=== PATIENT | female | born 1970 | race Caucasian/White ===

== ENCOUNTER 2021-10-23 13:25 | Outpatient (CLI) | payer BC | END 2021-10-23 13:26 | disposition home or self-care (01) | LOC: SCSRAD 13:25 | PROVIDERS: ATTEND Family Medicine Sports Medicine | DX: M79.674 Pain in right toe(s) (principal); S92.511A Displaced fracture of proximal phalanx of right lesser toe(s), initial encounter for closed fracture ==

== ENCOUNTER 2021-10-29 11:51 | Outpatient (CLI) | payer BC | END 2021-10-29 11:52 | disposition home or self-care (01) | LOC: BICMAMMO 11:51 | PROVIDERS: ATTEND Family Medicine Sports Medicine | DX: Z12.31 Encounter for screening mammogram for malignant neoplasm of breast (principal); Z91.89 Other specified personal risk factors, not elsewhere classified; Z98.890 Other specified postprocedural states | CPT/HCPCS: 77063; 77067 ==

== ENCOUNTER 2021-11-06 13:21 | Outpatient (CLI) | payer BC | END 2021-11-06 13:22 | disposition home or self-care (01) | LOC: BICMAMMO 13:21 | PROVIDERS: ATTEND Family Medicine Sports Medicine | DX: N64.89 Other specified disorders of breast (principal) | CPT/HCPCS: G0279 ==

== ENCOUNTER 2023-01-17 08:48 | Outpatient (CLI) | payer BC | END 2023-01-17 08:49 | disposition home or self-care (01) | LOC: BICMAMMO 08:48 | PROVIDERS: ATTEND Family Medicine Sports Medicine | DX: Z12.31 Encounter for screening mammogram for malignant neoplasm of breast (principal); Z91.89 Other specified personal risk factors, not elsewhere classified; Z98.890 Other specified postprocedural states | CPT/HCPCS: 77063; 77067 ==

== ENCOUNTER 2024-10-29 13:24 | Outpatient (CLI) | payer BC | END 2024-10-29 13:25 | disposition home or self-care (01) | LOC: CT 13:24 | PROVIDERS: ATTEND Physician Assistant | DX: N20.0 Calculus of kidney (principal); N28.89 Other specified disorders of kidney and ureter; N13.30 Unspecified hydronephrosis | CPT/HCPCS: 74176 ==

== ENCOUNTER 2024-12-01 09:45 | Day surgery (SDC) | payer BC ==
[2024-11-26 14:39] VITALS: BMI 27.9
[2024-12-01] MEDS ORDERED: Ondansetron PF 4 MG/2 ML Vial ONE (12:50)
[2024-12-01] MEDS ORDERED: PROPOFOL 20 ML ONE (12:50)
[2024-12-01] MEDS ORDERED: Albuterol HFA (OR) 200 PUFF INH ONE (14:31)
[2024-12-01] MEDS ORDERED: PHENYLEPHRINE-NS 100 MCG/ML 10 ML SYRINGE ONE (14:34)
[2024-12-01] MEDS ORDERED: Oxybutynin 5 MG TAB ONE (15:32)
== END 2024-12-01 17:29 | disposition home or self-care (01) ==
LOC: SDC 09:45
PROVIDERS: ATTEND Urology
PROC: 0WHR8YZ Insertion of Other Device into Genitourinary Tract, Via Natural or Artificial Opening Endoscopic (ICD-10-PCS; principal; 2024-12-01)
DX: N13.2 Hydronephrosis with renal and ureteral calculous obstruction (principal); N39.0 Urinary tract infection, site not specified; B96.20 Unspecified Escherichia coli [E. coli] as the cause of diseases classified elsewhere; I10 Essential (primary) hypertension; E11.65 Type 2 diabetes mellitus with hyperglycemia; Z79.4 Long term (current) use of insulin
CPT/HCPCS: 74018; 74420; C1769; C2617; J1100; J2250; J2543; J2704; J3010

== ENCOUNTER 2024-12-10 14:41 | Emergency (ER) | payer BC ==
[2024-12-10 16:16] LABS: #Basophils 0.07 10x3/uL (0.0-0.2); #Eosinophils 0.75 10x3/uL (0.0-0.7); #Monocytes 0.73 10x3/uL (0.11-0.59); #Neutrophils 5.64 10x3/uL (1.40-6.50); %Basophils 0.7 % (0.0-1.0); %Eosinophils 7.9 % (0.0-10.0); %Lymphocytes 24.1 % (21.0-51.0); %Monocytes 7.7 % (0.0-10.0); %Neutrophils 59.4 % (42.0-75.0); Hematocrit 35.5 % (36.0-47.0); Hemoglobin 11.8 g/dL (12.0-16.0); Mean Corpuscular Hemoglobin 28.6 pg (27.0-31.0); Mean Corpuscular Volume 86.0 fL (78.0-98.0); Platelet Count 368 10x3/uL (130-400); Red Blood Cell (RBC) Count 4.13 mill/uL (4.20-5.40); White Blood Cell (WBC) Count 9.50 10x3/uL (4.8-10.8)
[2024-12-10 16:38] LABS: ALT (SGPT) 19 U/L (Less than 34); AST (SGOT) 24 U/L (11-34); Albumin 3.6 g/dL (3.1-4.5); Alkaline Phosphatase 93 U/L (40-110); Anion Gap 14 mmol/L (10-20); BUN (Urea Nitrogen) 11 mg/dL (9.8-20.1); Bilirubin, Total 0.1 mg/dL (0.3-1.2); Calc. Creatinine Clearance 0 mL/min (70-130); Calcium 9.0 mg/dL (7.8-10.44); Carbon Dioxide 24 mmol/L (22-29); Chloride 102 mmol/L (98-107); Globulin 2.6 g/dL (2.4-3.5); Glucose 85 mg/dL (70-105); Potassium 4.0 mmol/L (3.5-5.1); Sodium 136 mmol/L (136-145)
== END 2024-12-10 17:00 | disposition home or self-care (01) ==
LOC: ERS 14:41
DX: Z00.01 Encounter for general adult medical examination with abnormal findings (principal); I10 Essential (primary) hypertension; D64.9 Anemia, unspecified; R79.9 Abnormal finding of blood chemistry, unspecified
CPT/HCPCS: 93005; 99283

== ENCOUNTER 2024-12-20 06:22 | Day surgery (SDC) | payer BC ==
[2024-12-10 13:24] VITALS: BMI 27.9
[2024-12-10 14:02] LABS: #Basophils 0.06 10x3/uL (0.0-0.2); #Eosinophils 0.70 10x3/uL (0.0-0.7); #Monocytes 0.83 10x3/uL (0.11-0.59); #Neutrophils 6.44 10x3/uL (1.40-6.50); %Basophils 0.6 % (0.0-1.0); %Eosinophils 7.1 % (0.0-10.0); %Lymphocytes 18.4 % (21.0-51.0); %Monocytes 8.4 % (0.0-10.0); %Neutrophils 65.2 % (42.0-75.0); Hematocrit 37.7 % (36.0-47.0); Hemoglobin 12.3 g/dL (12.0-16.0); Mean Corpuscular Hemoglobin 28.8 pg (27.0-31.0); Mean Corpuscular Volume 88.3 fL (78.0-98.0); Platelet Count 407 10x3/uL (130-400); Red Blood Cell (RBC) Count 4.27 mill/uL (4.20-5.40); White Blood Cell (WBC) Count 9.88 10x3/uL (4.8-10.8)
[2024-12-10 14:17] LABS: INR-International Normal Ratio 1.0; Prothrombin Time 12.8 sec (12.0-14.7)
[2024-12-10 14:18] LABS: BHCG - Serum Negative (NEGATIVE); PTT 30.5 sec (22.9-36.1); Pregs Control Background? CLEAR/WHITE (CLR/WHITE); Pregs Control Bar Appear? YES (CONTROL BAR)
[2024-12-10 14:23] LABS: Anion Gap 6 mmol/L (10-20); BUN (Urea Nitrogen) 11 mg/dL (9.8-20.1); Calc. Creatinine Clearance 0 mL/min (70-130); Calcium 9.0 mg/dL (7.8-10.44); Carbon Dioxide 28 mmol/L (22-29); Chloride 89 mmol/L (98-107); Glucose 153 mg/dL (70-105); Potassium 3.3 mmol/L (3.5-5.1); Sodium 120 mmol/L (136-145)
[2024-12-10 14:24] LABS: Bacteria/HPF 2+ HPF (None Seen); Glucose, Urine (Dipstick) Normal (Negative); Leukocyte 500 Leu/uL (Negative); Protein, Urine (Dipstick) 70 mg/dL (Neg-Trace); Specific Gravity, Urine 1.017 (1.002-1.036); WBC/HPF 21-50 HPF (0-3)
[2024-12-20] MEDS ORDERED: cefTRIAXone (ROCEPHIN) 2 GM VIAL ONE (06:36)
[2024-12-20] MEDS ORDERED: Rocuronium Bromide 10 MG/ML (10ML VIAL) ONE (07:05)
[2024-12-20] MEDS ORDERED: Bupivacaine 0.25% HCL 30 ML VIAL ONE (07:35)
[2024-12-20] MEDS ORDERED: PROPOFOL 200 MG/20 ML VIAL ONE (07:58)
[2024-12-20] MEDS ORDERED: PHENYLEPHRINE-NS 100 MCG/ML 10 ML SYRINGE ONE (08:06)
[2024-12-20] MEDS ORDERED: Ondansetron PF 4 MG/2 ML Vial ONE (08:09)
[2024-12-20] MEDS ORDERED: SUGAMMADEX SODIUM 200 MG/2 ML VIAL ONE (08:16)
[2024-12-20] MEDS ORDERED: Iopamidol 60 ML ONE (08:41)
[2024-12-20] MEDS ORDERED: Oxybutynin 5 MG TAB ONE (10:31)
[2024-12-20] MEDS ORDERED: fentaNYL PF 100 MCG/2 ML SYRINGE ONE (10:56)
[2024-12-20 11:47] LABS: Hematocrit 37.0 % (36.0-47.0); Hemoglobin 11.7 g/dL (12.0-16.0); Mean Corpuscular Hemoglobin 28.5 pg (27.0-31.0); Mean Corpuscular Volume 90.0 fL (78.0-98.0); Platelet Count 295 10x3/uL (130-400); Red Blood Cell (RBC) Count 4.11 mill/uL (4.20-5.40); White Blood Cell (WBC) Count 9.67 10x3/uL (4.8-10.8)
[2024-12-20 12:21] LABS: Anion Gap 12 mmol/L (10-20); BUN (Urea Nitrogen) 9 mg/dL (9.8-20.1); Calc. Creatinine Clearance 127 mL/min (70-130); Calcium 8.6 mg/dL (7.8-10.44); Carbon Dioxide 22 mmol/L (22-29); Chloride 106 mmol/L (98-107); Glucose 119 mg/dL (70-105); Potassium 4.2 mmol/L (3.5-5.1); Sodium 136 mmol/L (136-145)
== END 2024-12-20 14:00 | disposition home or self-care (01) ==
LOC: SDC 06:22
PROVIDERS: ATTEND Urology
PROC: 0TC33ZZ Extirpation of Matter from Right Kidney Pelvis, Percutaneous Approach (ICD-10-PCS; principal; 2024-12-20)
DX: N20.0 Calculus of kidney (principal); N30.00 Acute cystitis without hematuria; E11.9 Type 2 diabetes mellitus without complications; I10 Essential (primary) hypertension; Z79.899 Other long term (current) drug therapy
CPT/HCPCS: 36415; 74018; 74420; 80048; 81001; 84703; 85025; 85027; 85610; 85730; 86850; 86900; 86901; 87086; A4314; A6258; C1726; C1758; C1769; J0169; J0665; J0696; J1100; J2250; J2405; J2704; J3010; Q9967

== ENCOUNTER 2024-12-28 13:30 | Outpatient (CLI) | payer BC | END 2024-12-28 13:31 | disposition home or self-care (01) | LOC: BICCT 13:30 | PROVIDERS: ATTEND Urology | DX: N20.0 Calculus of kidney (principal); Z96.0 Presence of urogenital implants | CPT/HCPCS: 74176 ==

== ENCOUNTER 2024-12-30 14:01 | Outpatient (CLI) | payer BC ==
[2024-12-30 14:45] LABS: #Basophils 0.05 10x3/uL (0.0-0.2); #Eosinophils 0.43 10x3/uL (0.0-0.7); #Monocytes 0.74 10x3/uL (0.11-0.59); #Neutrophils 5.27 10x3/uL (1.40-6.50); %Basophils 0.6 % (0.0-1.0); %Eosinophils 5.0 % (0.0-10.0); %Lymphocytes 23.4 % (21.0-51.0); %Monocytes 8.7 % (0.0-10.0); %Neutrophils 61.8 % (42.0-75.0); Hematocrit 35.2 % (36.0-47.0); Hemoglobin 11.4 g/dL (12.0-16.0); Mean Corpuscular Hemoglobin 28.6 pg (27.0-31.0); Mean Corpuscular Volume 88.2 fL (78.0-98.0); Platelet Count 372 10x3/uL (130-400); Red Blood Cell (RBC) Count 3.99 mill/uL (4.20-5.40); White Blood Cell (WBC) Count 8.53 10x3/uL (4.8-10.8)
[2024-12-30 15:11] LABS: INR-International Normal Ratio 1.0; PTT 32.5 sec (22.9-36.1); Prothrombin Time 13.4 sec (12.0-14.7)
[2024-12-30 15:17] LABS: Anion Gap 12 mmol/L (10-20); BUN (Urea Nitrogen) 10 mg/dL (9.8-20.1); Calc. Creatinine Clearance 0 mL/min (70-130); Calcium 9.0 mg/dL (7.8-10.44); Carbon Dioxide 27 mmol/L (22-29); Chloride 101 mmol/L (98-107); Glucose 157 mg/dL (70-105); Potassium 3.5 mmol/L (3.5-5.1); Sodium 136 mmol/L (136-145)
== END 2024-12-30 14:02 | disposition home or self-care (01) ==
LOC: LABBT 14:01
PROVIDERS: ATTEND Urology
DX: Z01.818 Encounter for other preprocedural examination (principal); N20.0 Calculus of kidney
CPT/HCPCS: 80048; 85025; 85610; 85730; 93005; 93010

== ENCOUNTER 2025-01-03 07:37 | Day surgery (SDC) | payer BC ==
[2024-12-30 14:14] VITALS: BMI 27.9
[2025-01-03] MEDS ORDERED: cefTRIAXone (ROCEPHIN) 2 GM VIAL ONE (09:01)
[2025-01-03] MEDS ORDERED: Famotidine/PF 20 mg/2ml Vial ONE (09:05)
[2025-01-03] MEDS ORDERED: Rocuronium Bromide 10 MG/ML (10ML VIAL) ONE (10:36)
[2025-01-03] MEDS ORDERED: PROPOFOL 200 MG/20 ML VIAL ONE (10:44)
[2025-01-03] MEDS ORDERED: Ondansetron PF 4 MG/2 ML Vial ONE (10:49)
[2025-01-03] MEDS ORDERED: SUGAMMADEX SODIUM 200 MG/2 ML VIAL ONE (10:53)
[2025-01-03] MEDS ORDERED: Oxybutynin 5 MG TAB ONE (12:00)
[2025-01-03] MEDS ORDERED: HYDROcodone/Acetaminophen 5/325 mg Tablet ONE (13:46)
== END 2025-01-03 14:26 | disposition home or self-care (01) ==
LOC: SDC 07:37
PROVIDERS: ATTEND Urology
DX: N20.0 Calculus of kidney (principal); I10 Essential (primary) hypertension; F90.9 Attention-deficit hyperactivity disorder, unspecified type; E11.9 Type 2 diabetes mellitus without complications; Z79.84 Long term (current) use of oral hypoglycemic drugs; Z79.899 Other long term (current) drug therapy
CPT/HCPCS: 74420; 82365; 88300; C1747; C1769; C2617; J0696; J1100; J1308; J2405; J2704; J3010; Q9967

== ENCOUNTER 2025-01-20 14:16 | Outpatient (CLI) | payer BC | END 2025-01-20 14:17 | disposition home or self-care (01) | LOC: ULT 14:16 | PROVIDERS: ATTEND Urology | DX: N20.0 Calculus of kidney (principal); Z87.440 Personal history of urinary (tract) infections; Z98.890 Other specified postprocedural states; Z96.0 Presence of urogenital implants; L90.5 Scar conditions and fibrosis of skin | CPT/HCPCS: 74018; 76770 ==